=== PATIENT | male | born 1970 | race Caucasian/White ===

== ENCOUNTER 2018-10-20 15:40 | Emergency (ER) | payer SELFPAY ==
[~2018-10-20] VITALS: Ht 180.3 cm; Wt 88.5 kg
[2018-10-20 15:57] VITALS: Ht 180.3 cm; Wt 88.5 kg
[2018-10-20 17:11] VITALS: BP 136/85
== END 2018-10-20 17:11 | disposition home or self-care (01) ==
LOC: ED 15:40
DX: S05.01XA Injury of conjunctiva and corneal abrasion without foreign body, right eye, initial encounter (principal); T15.01XA Foreign body in cornea, right eye, initial encounter; W45.8XXA Other foreign body or object entering through skin, initial encounter; Y93.89 Activity, other specified; Y92.89 Other specified places as the place of occurrence of the external cause; Y99.8 Other external cause status
CPT/HCPCS: 90715